=== PATIENT | male | born 1960 | race Caucasian/White ===

== ENCOUNTER 2016-11-03 21:00 | Inpatient (IN) | payer OTHER ==
--- NOTE | ~2016-11-03 | PN ---
Unit #: [id number] #: [id number] Patient: RITA LU [id number] [facility] [address] [place] [address] [id number] I MR#: [id number] NAME: RITA LU ROOM: 81 Age: 56 Sex: M Admission Date: 11/04/2016 : 1960 Attending Physician: Mateo Sawyer M.D. Admitting Physician: Mateo Sawyer M.D. Primary Care Physician: Quiana Garrido PROGRESS NOTES DATE 11/06/2016 DISCUSSION The patient's detox continues uneventfully. He states at this point that he is not certain where he will go following his discharge from this facility. We will continue his current detoxification protocol and plan discharge by mid week. I will ask the patient's social security assessor to see him regarding post discharge treatment options. Dictated by... Mateo Sawyer M.D. CB/ashley TD: 11/07/2016 03:15 JOB #: [id number] AN PROGRESS NOTES Page 1 of 1 X Mateo Sawyer MD PROGRESS NOTE
--- NOTE | ~2016-11-03 | PA ---
Unit #: [id number] #: [id number] Patient: RITA LU [id number] [facility] [address] [place] [address] [id number] I MR#: [id number] NAME: RITA LU ROOM: [facility] Age: 56 Sex: M Admission Date: 11/04/2016 : 1960 Date of Assessment: 11/04/2016 Attending Physician: Mateo Sawyer M.D. Admitting Physician: Mateo Sawyer M.D. Primary Care Physician: Bon Crenshaw M.D. PSYCHIATRIC ASSESSMENT IDENTIFYING INFORMATION The patient is a 56-year-old white male admitted to the [address] [place] [address] for alcohol detox. INFORMANT(S) Chart, patient could not be aroused for interview. CHIEF COMPLAINT None given. HISTORY OF PRESENT ILLNESS The patient is a 56-year-old white male with a long history of alcohol dependence. He was last treated at this facility in March 2016. The patient reports that he has been drinking a fifth to a pint of vodka on a daily basis. He denies any suicidal or homicidal ideation. His blood alcohol on admission was .081 and his CIWA score 15. When seen today, the patient sleeping soundly and cannot be aroused for interview. For a more complete history of present illness, please refer to previous dictated notes. The patient does report a history of DTs and withdrawal seizures. PAST PSYCHIATRIC HISTORY Reviewed, no changes. FAMILY HISTORY/SOCIAL HISTORY Reviewed, no changes. MEDICAL HISTORY Reviewed, no changes. MEDICATION HISTORY 1. Celexa. 2. Levothyroxine. 3. Multivitamin. 4. Naprosyn. 5. Quetiapine. 6. Triamterene. 7. Vitamin B12. ALLERGIES None reported. MENTAL STATUS EXAM At this time, reveals the patient to be a soundly sleeping and disheveled Unit #: [id number] #: [id number] Patient: RITA LU white male appearing stated age. Multiple attempts to arouse the patient are unsuccessful. ASSETS AND LIABILITIES Patient's assets, motivation for change. Liabilities, lack of resources. ADMITTING DIAGNOSES 1. Alcohol use disorder. 2. Dysthymic disorder. 3. Hypothyroidism. 4. Chronic pain. 5. Hypertension. PSYCHIATRIC PLAN/TREATMENT GOALS The patient remains hospitalized for safety and stabilization. We will continue previously prescribed home medications and routine detoxification protocol for alcohol has been initiated. The patient will participate in appropriate rothman and milieu activities. ESTIMATED LENGTH OF STAY Five to seven days. Dictated by... Mateo Sawyer M.D. JABARI/ed TD: 11/04/2016 16:58 JOB #: [id number] PSYCHIATRIC ASSESSMENT Page 1 of 1 X Mateo Sawyer MD X PSYCHIATRIC ASSESSMENT
--- NOTE | ~2016-11-03 | DS ---
Unit #: [id number] #: [id number] Patient: RITA LU [id number] [place] [address] [id number] I MR#: [id number] NAME: RITA LU ROOM: [facility] Age: 56 Sex: M Admission Date: 11/04/2016 : 1960 Discharge Date: 11/08/2016 Attending Physician: Mateo Sawyer M.D. Primary Care Physician: Bon Crenshaw M.D. DISCHARGE SUMMARY REASON FOR ADMISSION The patient is a 56-year-old white male, admitted with increasing depression and alcohol use. HOSPITAL COURSE The [facility] and placed on routine detoxification protocol for alcohol. Home medications were continued including Celexa, Seroquel, Synthroid, Naprosyn, Maxzide, and vitamin B12. The patient's stay in the hospital was characterized by poor participation within the therapeutic milieu, but the patient's detox went uneventful. By 11/08/2016, he had made arrangements for post discharge housing and discharge was ordered. FINAL DIAGNOSES Alcohol use disorder; mood disorder, unspecified; hypothyroidism; hypertension. DISPOSITION ON DISCHARGE The patient is discharged on the following medications: Celexa 40 mg daily for depression, Synthroid 0.025 mg once daily for hypothyroidism, multivitamin 1 tablet daily for nutritional supplementation, Naprosyn 500 mg b.i.d. for osteoarthritis, Seroquel 100 mg at bedtime for mood stabilization, Maxzide 25 mg one tablet q.a.m. for hypertension, and vitamin B12 1000 mg daily for vitamin supplementation. DISCHARGE INSTRUCTIONS No dietary or physical restrictions were placed upon the patient at the time of discharge. FOLLOWUP Followup will take place through the auspices of community mental health resources. PROGNOSIS The patient's prognosis is considered fair. Dictated by... Mateo Sawyer M.D. JABARI/daisy TD: 11/08/2016 17:23 Unit #: [id number] #: [id number] Patient: RITA LU JOB #: [id number] DISCHARGE SUMMARY Page 1 of 1 X Mateo Sawyer MD X DISCHARGE SUMMARY
--- NOTE | ~2016-11-03 | PN ---
Unit #: [id number] #: [id number] Patient: RITA LU [id number] [facility] [address] [place] [address] [id number] I MR#: [id number] NAME: RITA LU ROOM: P181 Age: 56 Sex: M Admission Date: 11/04/2016 : 1960 Attending Physician: Mateo Sawyer M.D. Admitting Physician: Mateo Sawyer M.D. Primary Care Physician: Quiana Garrido PROGRESS NOTES DATE 11/05/2016 DISCUSSION The patient is abed resting comfortably today and offers no new complaints. Staff reports that his detox continues uneventfully. Dictated by... Mateo Sawyer M.D. CB/ashley TD: 11/06/2016 22:52 JOB #: [id number] AN PROGRESS NOTES Page 1 of 1 X Mateo Sawyer MD X PROGRESS NOTE
--- NOTE | ~2016-11-03 | PN ---
Unit #: [id number] #: [id number] Patient: RITA LU [id number] [facility] [address] [place] [address] [id number] I MR#: [id number] NAME: RITA LU ROOM: P181 Age: 56 Sex: M Admission Date: 11/04/2016 : 1960 Attending Physician: Mateo Sawyer M.D. Admitting Physician: Mateo Sawyer M.D. Primary Care Physician: Quiana Garrido PROGRESS NOTES DATE 11/07/2016 DISCUSSION The patient's detox continues uneventfully. He states that he plans to go to a local snf at the time of discharge which will likely take place tomorrow. Dictated by... Mateo Sawyer M.D. CB/ed TD: 11/07/2016 15:28 JOB #: [id number] AN PROGRESS NOTES Page 1 of 1 X Mateo Sawyer MD X PROGRESS NOTE
--- NOTE | ~2016-11-03 | HP ---
Unit #: [id number] #: [id number] Patient: RITA LU [id number] [place] [address] [id number] I MR#: [id number] NAME: RITA LU ROOM: P181 Age: 56 Sex: M Admission Date: 11/04/2016 : 1960 Attending Physician: Mateo Sawyer M.D. Admitting Physician: Mateo Sawyer M.D. Primary Care Physician: Bon Crenshaw M.D. HISTORY AND PHYSICAL HISTORY OF PRESENT ILLNESS The patient is a 56-year-old male who states he is here for alcoholism, drinks approximately 1 pint to 1 fifth of alcohol per day. PAST MEDICAL HISTORY Hypertension. PAST SURGICAL HISTORY Appendectomy. ALLERGIES None. SOCIAL HISTORY Smoking and alcohol. Negative for drugs. FAMILY HISTORY Noncontributory. REVIEW OF SYSTEMS CONSTITUTIONAL: No fever or chills. HEENT: Denies any sore throat, ear pain or runny nose. CARDIOVASCULAR: Denies chest pain, irregular heart rhythm or palpitations. CHEST: Denies shortness of breath or cough. No hemoptysis. GASTROINTESTINAL: Denies nausea, vomiting, diarrhea or chronic constipation. ENDOCRINE: Denies history of increased thirst or urination. No recent significant weight loss or gain. GENITOURINARY: Denies dysuria, frequency, or hematuria. SKIN: Denies any rashes. HEMATOLOGIC: Denies history of increased bleeding or bruising. MUSCULOSKELETAL: Denies any hot, swollen joints. No generalized muscle pain. NEUROLOGIC: Denies problems with vision or speech. No frequent, severe headaches. No numbness, tingling or weakness in any extremities. Denies loss of bladder or bowel control. CURRENT MEDICATIONS 1. Celexa 40 mg p.o. daily. 2. Levothyroxine 0.025 mg p.o. daily. 3. Multivitamin daily. 4. Naproxen 500 mg p.o. p.r.n. b.i.d. 5. Quetiapine 100 mg p.o. q.h.s. Unit #: [id number] #: [id number] Patient: RITA LU 6. Triamterene 37.5 daily. 7. Vitamin B12 1000 mcg p.o. daily. PHYSICAL EXAMINATION GENERAL: Alert, oriented, in no acute distress. VITAL SIGNS: Temperature 98.8, heart rate 81, respirations 18, blood pressure 150/96. HEIGHT: 6 feet 1 inch. WEIGHT: 200 pounds. SKIN: IV puncture sites to bilateral AC's. Scar to the midline abdomen. Red area to the left foot. Scar to the left flank area. Abrasion to the left fifth toe. HEENT: Normocephalic. TMs not viewed. Oral and nasal passages clear. Conjunctivae clear. PERRLA. EOMs intact. NECK: Supple without lymphadenopathy or thyromegaly. HEART: Regular rate and rhythm without murmur. LUNGS: Clear. ABDOMEN: Soft, nontender, without masses or hepatosplenomegaly. : Not done. EXTREMITIES: No evidence of cyanosis, clubbing or edema. Moves all without focal deficit. NEUROLOGICAL: Grossly within normal limits. Cranial Nerves: II: Visual swan are intact. III, IV AND : Extraocular movements are intact. Pupils are equal, round and reactive to light. V: Facial sensation is grossly normal. VII: Facial movements and expression are normal. VIII: Auditory acuity grossly intact. IX, X: Uvula is midline. Phonation is normal. XI: Patient shrugs shoulders and turns head normally. XII: Tongue protrudes in the midline. Sensory and Motor Function: Sensory and motor sensation is grossly normal. Motor: moves all extremities well. Coordination: Gait is normal. Deep Tendon Reflexes: Intact. IMPRESSION Psychiatric admission. RECOMMENDATIONS PSYCHIATRIC: Per psychiatrist. MEDICAL: No contraindications to participate in facility's activities. MEDICAL PROGNOSIS Good. Dictated by... Tatiana Vaughan/ed TD: 11/04/2016 18:21 JOB #: [id number] Unit #: [id number] #: [id number] Patient: RITA LU HISTORY AND PHYSICAL Page 1 of 1 X Montse Espino APR X HISTORY AND PHYSICAL
[2016-11-05 11:29] LABS: BASOPHIL% 0.8 % (0-2.5); EOSINOPHIL# 0.4 X10e3 (0-0.7); EOSINOPHIL% 4.3 % (0.0-7.0); HEMATOCRIT 42.2 % (38.0-50.0); HEMOGLOBIN 13.9 gm/dL (13.0-16.0); LYMPHOCYTE# 1.6 X10e3 (1.0-3.5); LYMPHOCYTE% 18.2 % (17.0-45.0); MEAN CELL VOLUME 96.3 FL (83-96); MEAN CORPUSCULAR HEMOGLOBIN 31.8 PG (28-34); MEAN PLATELET VOLUME 9.7 FL (6.5-11.5); MONOCYTE# 0.9 X10e3 (0-1.0); MONOCYTE% 10.1 % (3.0-12.0); NEUTROPHIL# 5.9 X10e3 (1.5-7.1); NEUTROPHIL% 66.6 % (40-75); PLATELET COUNT 221 X10e3 (140-420); RED BLOOD COUNT 4.39 X10e (3.90-5.60); RED CELL DISTRIBUTION WIDTH 15.1 % (11.0-15.5); WHITE BLOOD COUNT 8.8 X10e3 (4.0-10.5)
[2016-11-05 11:30] LABS: BASOPHIL# 0.1 X10e3 (0-0.3)
[2016-11-05 11:31] LABS: DIFF IND NO
[2016-11-05 11:39] LABS: ALBUMIN SERUM 3.3 g/dL (3.5-5.0); BILIRUBIN,TOTAL 1.9 mg/dL (0.2-2.0); BUN/CREATININE RATIO 17.14; CALCIUM SERUM 8.8 mg/dL (8.4-10.2); CREATININE SERUM 0.7 mg/dL (0.6-1.4); GLOM FILT RATE Estimated 104.8 mL/min (>60); POTASSIUM 3.7 mmol/L (3.5-5.1); PROTEIN TOTAL SERUM 5.6 g/dL (6.0-8.3)
[2016-11-06 10:09] LABS: URINE APPEARANCE CLEAR; URINE BILIRUBIN NEG (NEG); URINE BLOOD NEG (NEG); URINE COLOR DK YELLOW; URINE GLUCOSE NEG (NEG); URINE KETONE NEG (NEG); URINE LEUKOCYTE ESTERASE NEG (NEG); URINE NITRATE NEG (NEG); URINE PH 6.5 (5-8); URINE PROTEIN NEG (NEG); URINE SPECIFIC GRAVITY 1.016 (1.003-1.035)
[2016-11-06 11:28] LABS: AMPHETAMINE NEG (NEG); BARBITURATES NEG (NEG); BENZODIAZEPINES POS (NEG); COCAINE NEG (NEG); MARIJUANA NEG (NEG); OPIATES NEG (NEG); TRICYCLIC ANTIDEPRESSANTS NEG (NEG); U METHADONE NEG (NEG)
== END 2016-11-08 14:20 | disposition home or self-care (01) | DRG 897 ==
LOC: P1E 11-04 04:15
PROVIDERS: Specialist
PROC: HZ2ZZZZ Detoxification Services for Substance Abuse Treatment (ICD-10-PCS; principal; 2016-11-04)
DX: F10.20 Alcohol dependence, uncomplicated (principal); I10 Essential (primary) hypertension; F34.1 Dysthymic disorder; E03.9 Hypothyroidism, unspecified; G89.29 Other chronic pain; F17.210 Nicotine dependence, cigarettes, uncomplicated
CPT/HCPCS: 80053; 80307; 81003; 85025; 86592